=== PATIENT | female | born 1940 | race Caucasian/White ===

== ENCOUNTER 2020-01-03 11:12 | Emergency (ER) | payer MEDICARE, OTHER ==
[~2020-01-03] VITALS: Ht 154.9 cm; Wt 186.0 kg
[2020-01-03 11:26] VITALS: BP 176/64
[2020-01-03] MEDS ORDERED: HYDROcodone/acetaminophen 10/325mg tab PO ONE (15:30)
--- NOTE | 2020-01-03 16:00 | NUR ---
PATIENT HAS KERLIX WRAP AND ROSENDO BANDAGES APPLIED TO BILAT LOWER LEGS. AWAITING TRANSPORTATION HOME VIA [facility].
== END 2020-01-03 17:55 | disposition home or self-care (01) ==
LOC: ER 11:13
DX: I89.0 Lymphedema, not elsewhere classified (principal); I11.0 Hypertensive heart disease with heart failure; I50.9 Heart failure, unspecified; M19.90 Unspecified osteoarthritis, unspecified site; G89.29 Other chronic pain
CPT/HCPCS: 99284

== ENCOUNTER 2023-07-07 09:50 | Inpatient (IN) | payer MEDICARE, MEDICAID ==
[~2023-07-07] VITALS: Ht 152.4 cm; Wt 176.0 kg
[~2023-07-07 09:50] MED LIST: ASPI-1265 PO; CARV-50 PO; CYAN100097 PO; DOXY-1 PO; ERGO50002 PO; FERR325T28 PO; FOLI0.4T6 PO; FURO-150 PO; LACT1CAP86 PO; OXYB5TAB21 PO; POTA-207 PO; RIVA20TA PO; TRAM50TA2 PO; ZAR2.5T PO
[2023-07-07 10:49] LABS: BASOPHILS % (AUTO) 0.1 % (0-1); EOSINOPHILS # (AUTO) 0.1 X10'3 (0-0.9); EOSINOPHILS % (AUTO) 0.3 % (0-6); HEMATOCRIT 36.4 % (35.0-45.0); HEMOGLOBIN 12.1 g/dl (12.0-16.0); LYMPHOCYTES # (AUTO) 1.5 X10'3 (1.1-4.8); LYMPHOCYTES % (AUTO) 8.2 % (21-51); MEAN CORPUSCULAR HEMOGLOBIN 32.3 PG (27.0-31.0); MEAN CORPUSCULAR HGB CONC 33.1 g/dL (33.0-36.5); MEAN CORPUSCULAR VOLUME 97.5 FL (78-98); MEAN PLATELET VOLUME 8.6 FL (7.4-10.4); MONOCYTES # (AUTO) 1.4 X10'3 (0-0.9); MONOCYTES % (AUTO) 7.7 % (2-12); NEUTROPHILS # (AUTO) 15.2 X10'3 (1.8-7.7); NEUTROPHILS % (AUTO) 83.7 % (42-75); PLATELET COUNT 331 X10'3 (140-440); RED BLOOD COUNT 3.73 X10'6 (4.20-5.60); RED CELL DISTRIBUTION WIDTH 13.9 % (11.5-14.5); WHITE BLOOD COUNT 18.1 X10'3 (4.5-11.0)
[2023-07-07 11:05] LABS: ALBUMIN 1.7 G/DL (3.4-5.0); ANION GAP 5 (8-16); BLOOD UREA NITROGEN 24 MG/DL (7-18); BUN/CREATININE RATIO 18.3 (10.0-20.0); CALCIUM 8.9 MG/DL (8.5-10.1); CHLORIDE 105 MMOL/L (99-107); CREATININE 1.31 MG/DL (0.40-0.90); GLUCOSE 179 MG/DL (70-104); LIPASE 13 U/L (16-77); POTASSIUM 5.4 MMOL/L (3.5-5.1); SODIUM 142 MMOL/L (135-145); TOTAL CARBON DIOXIDE 31.6 MMOL/L (24-32); eCRCL 25 ML/MIN; eGFR 39 ML/MIN
[2023-07-07 11:10] LABS: APTT 38 SECONDS (22-32); INR 1.8 INR; PROTHROMBIN TIME 18.4 SECONDS (9.0-12.0)
[2023-07-07 11:34] LABS: ALANINE AMINOTRANSFERASE 12 U/L (12-78); ALBUMIN/GLOBULIN RATIO 0.4 (1.1-1.5); ALKALINE PHOSPHATASE 92 IU/L (46-116); ASPARTATE AMINO TRANSFERASE 18 U/L (10-37); BILIRUBIN,TOTAL 0.9 MG/DL (0.1-1.0); TOTAL PROTEIN 6.1 G/DL (6.4-8.2)
[2023-07-07 11:45] LABS: MAGNESIUM 1.9 MG/DL (1.5-2.4)
[2023-07-07] MEDS: ringers solution, lacted 1,000 ML IV ONE ×3 (12:02→13:38)
[2023-07-07] MEDS: VANCOmycin 2,000MG in NS 500ml IV soln IV ONE (13:38)
[2023-07-07] MEDS: normal saline 1000ML IV soln IVB ONE (14:31)
[2023-07-07] MEDS: piperacillin/tazo 4.5gm/100ml 100 ML IV STA (14:35)
[2023-07-07] MEDS: HUM PROTHROMB CPLX LANS IV ONE ×2 (15:55→17:05)
[2023-07-07] MEDS: WATER FOR INJECTION STERILE IV ONE ×2 (15:55→17:05)
[2023-07-07 17:59] LABS: D-DIMER 0.44 MG/L FEU (0-0.50)
[2023-07-07 18:13] VITALS: TEMP 97.2
[2023-07-07 18:59] LABS: FIBRINOGEN 704 MG/DL (177-424)
[2023-07-07] MEDS ORDERED: magnesium 2GM in 50ml NS 50 ML IV PRN (20:45)
[2023-07-07] MEDS ORDERED: magnesium Cl slow-release 64mg tablet PO PRN (20:45)
[2023-07-07] MEDS ORDERED: morphine 2 MG/ML inj. syringe IV PRN (20:45)
[2023-07-07] MEDS ORDERED: potassium Cl 20 mEq SR tablet PO PRN ×2 (20:45)
[2023-07-07] MEDS ORDERED: magnesium hydroxide 30ml (MOM) UD suspension PO PRN (20:45)
[2023-07-07] MEDS ORDERED: ondansetron/PF 4mg/2ml inj IV PRN (20:45)
[2023-07-07] MEDS ORDERED: mag hydrox/Alum hydrox/simeth 30ml oral suspension PO PRN (20:45)
[2023-07-07] MEDS ORDERED: potassium Cl 40MEQ/1/2NS 520ml 520 ML IV PRN (20:45)
[2023-07-07] MEDS ORDERED: magnesium 4gm in 100ml NS 100 ML IV PRN (20:45)
[2023-07-07] MEDS ORDERED: acetaminophen 325mg tablet PO PRN (20:45)
[2023-07-07] MEDS ORDERED: piperacillin/tazo 3.375gm/50ml 50 ML IV SCH (20:54)
[2023-07-07 23:00] VITALS: BP 135/61; PULSE 96; RESP 16; O2SAT 94
[2023-07-07 23:30] VITALS: RESP 15; O2SAT 96
[2023-07-07] MEDS: levoFLOXACIN-Levaquin 750MG/D5 150 ML IV SCH (23:30)
[2023-07-07] MEDS: normal saline 1000ml 1,000 ML IV SCH (23:30)
[2023-07-07] MEDS: piperacillin/tazo 3.375gm/50ml 50 ML IV SCH (23:45)
[2023-07-07] MEDS: NORepinephrine 8mg/ 250ml NS 250 ML IV ONE (23:58)
[2023-07-08] VITALS (23 sets, daily range): BP systolic 82–120; BP diastolic 28–79; PULSE 91–123; RESP 13–25; O2SAT 91–99
[2023-07-08 00:44] LABS: BASOPHILS % (AUTO) 0 % (0-1); EOSINOPHILS % (AUTO) 0 % (0-6); HEMATOCRIT 30.8 % (35.0-45.0); HEMOGLOBIN 10.1 g/dl (12.0-16.0); LYMPHOCYTES # (AUTO) 2.3 X10'3 (1.1-4.8); LYMPHOCYTES % (AUTO) 10.4 % (21-51); MEAN CORPUSCULAR HEMOGLOBIN 32.4 PG (27.0-31.0); MEAN CORPUSCULAR HGB CONC 32.8 g/dL (33.0-36.5); MEAN CORPUSCULAR VOLUME 98.9 FL (78-98); MEAN PLATELET VOLUME 8.3 FL (7.4-10.4); MONOCYTES # (AUTO) 2.2 X10'3 (0-0.9); MONOCYTES % (AUTO) 9.6 % (2-12); NEUTROPHILS # (AUTO) 17.9 X10'3 (1.8-7.7); PLATELET COUNT 311 X10'3 (140-440); RED BLOOD COUNT 3.12 X10'6 (4.20-5.60); RED CELL DISTRIBUTION WIDTH 14.1 % (11.5-14.5); WHITE BLOOD COUNT 22.4 X10'3 (4.5-11.0)
[2023-07-08 00:58] LABS: ALANINE AMINOTRANSFERASE 10 U/L (12-78); ALBUMIN 1.7 G/DL (3.4-5.0); ALBUMIN/GLOBULIN RATIO 0.4 (1.1-1.5); ALKALINE PHOSPHATASE 79 IU/L (46-116); ANION GAP 6 (8-16); ASPARTATE AMINO TRANSFERASE 12 U/L (10-37); BILIRUBIN,TOTAL 0.7 MG/DL (0.1-1.0); BLOOD UREA NITROGEN 31 MG/DL (7-18); BUN/CREATININE RATIO 20.1 (10.0-20.0); CALCIUM 8.4 MG/DL (8.5-10.1); CHLORIDE 106 MMOL/L (99-107); CREATININE 1.54 MG/DL (0.40-0.90); GLUCOSE 190 MG/DL (70-104); MAGNESIUM 1.8 MG/DL (1.5-2.4); PHOSPHORUS 3.6 MG/DL (2.3-4.5); POTASSIUM 4.9 MMOL/L (3.5-5.1); SODIUM 142 MMOL/L (135-145); TOTAL CARBON DIOXIDE 30.4 MMOL/L (24-32); TOTAL PROTEIN 5.6 G/DL (6.4-8.2); eCRCL 21 ML/MIN; eGFR 32 ML/MIN
[2023-07-08] MEDS: morphine 2 MG/ML inj. syringe IV PRN (00:59)
[2023-07-08] MEDS: NORepinephrine 8mg/ 250ml NS 250 ML IV ONE (03:23)
[2023-07-08] MEDS: NORepinephrine 8mg/ 250ml NS 250 ML IV PRN (03:24)
[2023-07-08] MEDS: albumin (Human) 5% 250ml 250 ML IV ONE ×2 (04:37→05:48)
[2023-07-08] MEDS: pantoprazole 40 MG vial IV SCH (07:58)
[2023-07-08] MEDS: docusate sod 100mg capsule PO SCH (07:59)
[2023-07-08] MEDS: heparin, porcine 5000 units/ml vial SQ SCH (07:59)
[2023-07-08] MEDS: ringers solution, lacted 1,000 ML IV ONE (08:00)
[2023-07-08] MEDS: K and/or MAG REPLACEMENT MC SCH (08:00)
[2023-07-08] MEDS: vancomycin/NS 1 GM ADD-VANTAGE 250 ML IV SCH (08:15)
[2023-07-08] MEDS ORDERED: POTA-205 PO (10:49)
[2023-07-08] MEDS ORDERED: ZINC220T3 PO (10:49)
[2023-07-08] MEDS ORDERED: LACT10SO78 PO (10:49)
[2023-07-08] MEDS ORDERED: VITC500T PO (10:49)
[2023-07-08] MEDS ORDERED: LACT100C2 PO (10:49)
[2023-07-08] MEDS ORDERED: RIVA20TA PO (10:49)
[2023-07-08] MEDS ORDERED: FOLI1TAB27 PO (10:49)
[2023-07-08] MEDS ORDERED: FURO40TA4 PO (10:49)
[2023-07-08] MEDS ORDERED: GUAI118S10 PO (10:49)
[2023-07-08] MEDS ORDERED: CALC-437 PO (10:53)
[2023-07-08] MEDS ORDERED: OXYB15TA19 PO (10:53)
[2023-07-08] MEDS ORDERED: CHOL100017 PO (10:53)
[2023-07-08] MEDS ORDERED: CARV6.257 PO (10:53)
[2023-07-08] MEDS ORDERED: PANT40TA54 PO (10:53)
[2023-07-08] MEDS ORDERED: ASPI-611 PO (10:53)
[2023-07-08] MEDS ORDERED: DOCU250C16 PO (10:53)
[2023-07-08] MEDS ORDERED: IPRA3AMP31 IH (10:54)
[2023-07-08] MEDS ORDERED: vancomycin/NS 1 GM ADD-VANTAGE 250 ML IV SCH (13:00)
[2023-07-09] VITALS (15 sets, daily range): BP systolic 102–145; BP diastolic 36–52; PULSE 87–104; RESP 14–22; O2SAT 96–99
[2023-07-09 02:02] LABS: BASOPHILS % (AUTO) 0.1 % (0-1); EOSINOPHILS % (AUTO) 0.2 % (0-6); HEMATOCRIT 24.6 % (35.0-45.0); HEMOGLOBIN 7.9 g/dl (12.0-16.0); LYMPHOCYTES # (AUTO) 2.2 X10'3 (1.1-4.8); LYMPHOCYTES % (AUTO) 12.2 % (21-51); MEAN CORPUSCULAR HEMOGLOBIN 31.6 PG (27.0-31.0); MEAN CORPUSCULAR HGB CONC 32.3 g/dL (33.0-36.5); MEAN CORPUSCULAR VOLUME 97.9 FL (78-98); MEAN PLATELET VOLUME 7.9 FL (7.4-10.4); MONOCYTES # (AUTO) 2.3 X10'3 (0-0.9); MONOCYTES % (AUTO) 13.1 % (2-12); NEUTROPHILS # (AUTO) 13.2 X10'3 (1.8-7.7); NEUTROPHILS % (AUTO) 74.4 % (42-75); PLATELET COUNT 249 X10'3 (140-440); RED BLOOD COUNT 2.51 X10'6 (4.20-5.60); RED CELL DISTRIBUTION WIDTH 14.3 % (11.5-14.5); WHITE BLOOD COUNT 17.7 X10'3 (4.5-11.0)
[2023-07-09 02:14] LABS: ALANINE AMINOTRANSFERASE 9 U/L (12-78); ALBUMIN/GLOBULIN RATIO 0.6 (1.1-1.5); ALKALINE PHOSPHATASE 69 IU/L (46-116); ANION GAP 3 (8-16); ASPARTATE AMINO TRANSFERASE 13 U/L (10-37); BILIRUBIN,TOTAL 0.6 MG/DL (0.1-1.0); BLOOD UREA NITROGEN 36 MG/DL (7-18); BUN/CREATININE RATIO 27.7 (10.0-20.0); CALCIUM 8.1 MG/DL (8.5-10.1); CHLORIDE 107 MMOL/L (99-107); GLUCOSE 109 MG/DL (70-104); POTASSIUM 4.6 MMOL/L (3.5-5.1); SODIUM 144 MMOL/L (135-145); TOTAL CARBON DIOXIDE 34.1 MMOL/L (24-32); TOTAL PROTEIN 5.2 G/DL (6.4-8.2); eCRCL 25 ML/MIN; eGFR 39 ML/MIN
[2023-07-09 02:21] LABS: MAGNESIUM 1.9 MG/DL (1.5-2.4); PHOSPHORUS 3.1 MG/DL (2.3-4.5); PRO BRAIN NATRIURETIC PEPTIDE 1096 PG/ML (0-450)
[2023-07-09 05:31] LABS: PLATELET ESTIMATE NORMAL; POLYCHROMASIA FEW; STOMATOCYTES 1+
[2023-07-09] MEDS ORDERED: VANCOMYCIN LEVEL IV ONE (19:30)
[2023-07-09] MEDS ORDERED: levoFLOXACIN-Levaquin 750MG/D5 150 ML IV SCH (21:00)
== END 2023-07-09 14:43 | disposition hospice, home (50) | DRG 871 ==
LOC: ER 09:50 → ED HOLD 21:40 → PCU 3S 21:55 → CICU 2S 23:16
PROVIDERS: ADMIT Surgery Surgical Critical Care; ATTEND Internal Medicine
PROC: 02HV33Z Insertion of Infusion Device into Superior Vena Cava, Percutaneous Approach (ICD-10-PCS; principal; 2023-07-07)
DX: A41.9 Sepsis, unspecified organism (principal); J18.9 Pneumonia, unspecified organism; R65.21 Severe sepsis with septic shock; I13.0 Hypertensive heart and chronic kidney disease with heart failure and stage 1 through stage 4 chronic kidney disease, or unspecified chronic kidney disease; Z68.45 Body mass index [BMI] 70 or greater, adult; R18.8 Other ascites; N17.9 Acute kidney failure, unspecified; G89.29 Other chronic pain; Z20.822 Contact with and (suspected) exposure to COVID-19; I50.9 Heart failure, unspecified; E66.01 Morbid (severe) obesity due to excess calories; I48.91 Unspecified atrial fibrillation; E87.5 Hyperkalemia; K43.9 Ventral hernia without obstruction or gangrene; N18.9 Chronic kidney disease, unspecified; Z66 Do not resuscitate; Z51.5 Encounter for palliative care; Z79.01 Long term (current) use of anticoagulants; Z79.899 Other long term (current) drug therapy; Z79.82 Long term (current) use of aspirin
CPT/HCPCS: 36415; 36556; 71045; 71250; 74176; 76700; 80053; 82948; 83605; 83690; 83735; 83880; 84100; 84132; 84145; 85008; 85025; 85379; 85384; 85610; 85730; 87040; 87081; 87502; 87503; 87811; 93005; 96361; 96365; 96367; 96375; 99291; A6154; A6213; A6250; A6449; C1751; C1758; C9113; G0378; J1644; J1956; J2270; J2543; J3370; J7030; J7040; J7120; J7168; P9045